=== PATIENT | female | born 1945 | race Caucasian/White ===

== ENCOUNTER 2016-04-19 09:52 | Day surgery (SDC) | payer MEDICARE ==
[~2016-04-19] VITALS: Ht 160 cm; Wt 81.4 kg
[~2016-04-19 09:52] MED LIST: ACET-171 PO; ASCO-294 PO; ASPI-973 PO; CALC-722 PO; CHOL200047 PO; CITA40TA13 PO; HYDR-3605 PO; HYDR25TA4 PO; LEVO88TA4 PO; LOSA100T29 PO; MULT-1018 PO; OMEG500C PO; OMEP20CA11 PO; OXYC5TAB72 PO; ROPI0.5T2 PO; UBID30CA12 PO; VIT1TABL83 PO; Zoledronic Acid 5 mg/100 mL Premix IV ONE
[2016-04-19 10:23] VITALS: PULSE 56; RESP 16; O2SAT 98
[2016-04-19] MEDS ORDERED: BIOT5CAP9 PO (10:33)
[2016-04-19] MEDS ORDERED: DOCU-41 PO (10:35)
--- NOTE | 2016-04-19 11:47 | NUR ---
Reclast Patient arrived with to unit. Reviewed medication and plan of care with both. Carenotes given. Patient concerned with effects of medication and gastric bypass. Pharmacy notified, given no none effects. Reclast infused without adverse reaction. Patient and left unit in stable condition.
== END 2016-04-19 23:59 | disposition home or self-care (01) ==
LOC: MOCO 09:52
PROVIDERS: ATTEND Nurse Practitioner
DX: M81.0 Age-related osteoporosis without current pathological fracture (principal); Z98.84 Bariatric surgery status